=== PATIENT | female | born 1955 | race Caucasian/White ===

== ENCOUNTER 2017-03-01 17:21 | Emergency (ER) | payer BC ==
[2017-03-01] MEDS ORDERED: NS 0.9% 1000 ML* 1,000 ML IV ONE (19:30)
[2017-03-01] MEDS ORDERED: Morphine INJ* 4 MG/ML 1 ML SYRINGE IV ONE ×2 (19:30→22:29)
[2017-03-01] MEDS ORDERED: Ondansetron INJ* 2 MG/ML VIAL IV ONE (19:30)
--- NOTE | 2017-03-01 20:27 | RAD ---
HISTORY: Chest pain COMPARISONS: None VIEWS: 2: Frontal dual-energy and lateral views of the chest. FINDINGS: CARDIOMEDIASTINAL SILHOUETTE: The cardiomediastinal silhouette is normal. BLANCA: The blanca are normal. PLEURA: The costophrenic angles are sharp. No pleural abnormalities are noted. LUNG PARENCHYMA: The lungs are clear. ABDOMEN: The upper abdomen is clear. There is no subphrenic gas. BONES AND SOFT TISSUES: No bone or soft tissue abnormalities are noted. OTHER: None. IMPRESSION: NO ACTIVE CARDIOPULMONARY DISEASE.
[2017-03-01 20:47] LABS: Hematocrit 43 % (35-47); Hemoglobin 14.7 g/dl (12.0-16.0); Mean Corpuscular HGB Conc 34 g/dl (31-36); Mean Corpuscular Hemoglobin 31 pg (27-31); Mean Corpuscular Volume 90 fL (80-97); Mean Platelet Volume 9 um3 (7.4-10.4); Red Blood Count 4.77 10^6/ul (4.0-5.4); Red Cell Distribution Width 13 % (10.5-15); White Blood Count 7.2 10^3/ul (3.5-10.8)
[2017-03-01 21:05] LABS: Albumin 3.9 g/dL (3.2-5.2); BUN/Creatinine Ratio 17.8 (8-20); Calcium 9.4 mg/dL (8.6-10.3); EGFR African American 181.6 (>60); EGFR Non-African American 141.2 (>60); Globulin 3.6 g/dL (2-4); Potassium 3.7 mmol/L (3.5-5.0); Total Bilirubin 0.6 mg/dL (0.2-1.0); Total Protein 7.5 g/dL (6.4-8.9)
[2017-03-01 21:07] LABS: Troponin I 0.01 ng/mL (<0.04)
[2017-03-01] MEDS ORDERED: Iodixanol* (CONTRAST) 320 MG/ML 100 ML SDV IV ONE (21:25)
--- NOTE | 2017-03-01 21:59 | RAD ---
CLINICAL HISTORY: The upper left abdominal pain COMPARISON: None TECHNIQUE: Multiple contiguous axial CT scans were obtained of the abdomen and pelvis after the administration of intravenous contrast. Coronal and sagittal multiplanar reformations are submitted for review. Oral contrast was not administered. Delayed images were obtained through the abdomen and pelvis. FINDINGS: LUNG BASES: The lung bases are clear. LIVER: The liver is diffusely low in attenuation compared to the spleen. There are no focal hepatic parenchymal masses. The liver is enlarged measuring 22 cm in long axis. BILE DUCTS: There is no intrahepatic or extrahepatic biliary dilatation. GALLBLADDER: The gallbladder is normal, without pericholecystic inflammatory change. PANCREAS: The pancreas is normal, without mass or ductal dilatation. SPLEEN: Normal in size and appearance. UPPER GI TRACT: Evaluation of the gastrointestinal tract is limited by incomplete gastric distention. The upper GI tract is unremarkable. SMALL BOWEL AND MESENTERY: The small bowel is normal in contour, course, and caliber. There is no obstruction or dilatation. COLON: The colon is normal in contour, course, caliber. There is no pericolonic inflammatory change. There is a tubular, vermiform, hollow viscus that is blind ending, and originates from the cecum, consistent with a normal appendix. There is no periappendiceal inflammatory change. This is best seen on axial images 60 through 67. ADRENALS: Normal bilaterally. KIDNEYS: There is an 8.2 cm simple cyst of the left kidney. There is no appreciable hydronephrosis or nephrolithiasis BLADDER: The bladder is smooth in contour. PELVIC ORGANS: The patient appears to be status post partial hysterectomy. AORTA: There is calcific atherosclerotic disease of the abdominal aorta and its branches, without aneurysmal dilatation IVC: Unremarkable LYMPH NODES: There is no lymphadenopathy by size criteria. ABDOMINAL WALL: There is no evidence for abdominal wall hernia. BONES AND SOFT TISSUES: There are mild diffuse degenerative changes. OTHER: None IMPRESSION: 1. HEPATOMEGALY WITH FATTY INFILTRATION OF THE LIVER. 2. ATHEROSCLEROSIS. 3. NO ACUTE CT PATHOLOGY OF THE VISUALIZED ABDOMEN OR PELVIS
[2017-03-01] MEDS ORDERED: Morphine INJ* 4 MG/ML 1 ML SYRINGE ONE (22:16)
[2017-03-01 22:45] LABS: Urine Bacteria Absent (Absent); Urine Bilirubin Negative (Negative); Urine Glucose 3+(>=500 mg/dL) (Negative); Urine Nitrite Negative (Negative)
[2017-03-02 00:48] VITALS: BP 119/54
--- NOTE | 2017-03-02 01:48 | ED ---
Fernando Regalado Alok, scribed for Myles Rivera on 03/01/17 at 1934 . HPI Chest Pain - HPI Summary HPI Summary: 61 y/o female presents to the ED with pain under her left breast since leaving work today. 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 Pt states her pain is aggravated by movement and deep breaths. Pt tried drinking baking soda water in order to help alleviate pain with no effect. Pt also notes feeling "sluggish" for the past two days. Pt denies cough, fever, abd pain, nausea, dizziness, or SOB. Pt notes a rash on her abdomen due to allergies but states it is the same as baseline. PSHx includes removal of an ovarian cyst where a stress test was done several years ago. PMHx includes DM. Pt is allergic to Latex and Zinc. - History of Current Complaint Chief Complaint: EDChestWallPain Time Seen by Provider: 03/01/17 19:16 Hx Obtained From: Patient Onset/Duration: Started Hours Ago Timing: Constant Initial Severity: Moderate Current Severity: Moderate Pain Intensity: 8 Pain Scale Used: 0-10 Numeric Chest Pain Location: Left Anterior Chest Pain Radiates: No Aggravating Factor(s): Movement, Deep Breaths Alleviating Factor(s): Nothing Associated Signs and Symptoms: Positive: Chest Pain. Negative: Dizziness, Shortness of Breath, Fever, Nausea, Cough, Abdominal Pain - Allergy/Home Medications Allergies/Adverse Reactions: Allergies Allergy/AdvReac Type Severity Reaction Status Date / Time Latex Allergy Severe RASH, Verified 06/10/15 11:19 ITCHING Zinc Allergy Severe SKIN Verified 06/10/15 11:19 REACTION PMH/Surg Hx/FS Hx/Imm Hx Endocrine/Hematology History: Reports: Hx Diabetes Cardiovascular History: Reports: Hx Hypertension - Surgical History Surgery Procedure, Year, and Place: OVARIAN CYST REMOVAL, HYSTERECTOMY - Immunization History Date of Tetanus Vaccine: unknown Date of Influenza Vaccine: 2014 Infectious Disease History: No Infectious Disease History: Denies: Traveled Outside the [place] in Last 30 Days - Family History Known Family History: Negative: Cardiac Disease, Hypertension, Diabetes - Social History Occupation: Employed Full-time Alcohol Use: Occasionally Substance Use Type: Reports: None Smoking Status (MU): Never Smoked Tobacco Review of Systems Negative: Fever Positive: Chest Pain Negative: Shortness Of Breath, Cough Negative: Abdominal Pain, Nausea Positive: Rash - Same as baseline Neurological: Other - Negative: Dizziness All Other Systems Reviewed And Are Negative: Yes Physical Exam Triage Information Reviewed: Yes Vital Signs On Initial Exam: Initial Vitals Temp Pulse Resp BP Pulse Ox 98.8 F 116 19 222/116 98 03/01/17 17:33 03/01/17 17:33 03/01/17 17:33 03/01/17 17:33 03/01/17 17:33 Vital Signs Reviewed: Yes Appearance: Positive: Well-Appearing, No Pain Distress Skin: Positive: Warm, Skin Color Reflects Adequate Perfusion, Dry Head/Face: Positive: Normal Head/Face Inspection Eyes: Positive: EOMI, JULIANO ENT: Positive: Normal ENT inspection Neck: Positive: Supple, Nontender Respiratory/Lung Sounds: Positive: Clear to Auscultation, Breath Sounds Present Cardiovascular: Positive: RRR, Pulses are Symmetrical in both Upper and Lower Extremities, Other - Left sided chest pain Abdomen Description: Positive: Soft, Other: - Left upper quadrant tenderness/ Bowel Sounds: Positive: Present Musculoskeletal: Positive: Other - Left-sided chest pain and left upper quadrant tenderness Neurological: Positive: Normal, Sensory/Motor Intact, Alert, Oriented to Person Place, Time - Ender Coma Scale Coma Scale Total: 15 Diagnostics - Vital Signs Vital Signs Temp Pulse Resp BP Pulse Ox 03/01/17 18:29 97.8 F 104 20 184/91 97 03/01/17 17:33 98.8 F 116 19 222/116 98 - Laboratory Result Diagrams: 03/01/17 20:10 03/01/17 20:10 Lab Statement: Any lab studies that have been ordered have been reviewed, and results considered in the medical decision making process. - Radiology CXR Xray Interpretation: Positive (See Comments) - IMPRESSION: NO ACTIVE CARDIOPULMONARY DISEASE. Radiology Interpretation Completed By: Radiologist - CT Abd/Pel CT CT Interpretation: Positive (See Comments) - IMPRESSION: 1. HEPATOMEGALY WITH FATTY INFILTRATION OF THE LIVER. 2. ATHEROSCLEROSIS. 3. NO ACUTE CT PATHOLOGY OF THE VISUALIZED ABDOMEN OR PELVIS CT Interpretation Completed By: Radiologist - EKG 1822 Cardiac Rate: Tachycardia - 105 bpm EKG Rhythm: Sinus Tachycardia EKG Interpretation: No acute changes. Chest Pain Course/Dx - Course Course Of Treatment: Pt arrived to ED with left-sided CP. Labs, CT, and XRAY done showed NO ACUTE CT PATHOLOGY OF THE VISUALIZED ABDOMEN OR PELVIS and NO ACUTE CARDIAC DISEASE OF THE CHEST. Unlikely acute coronary syndrum. Will discharge pt with perscription for Motrin and Flexril and recommendation to FU with PCP in 3 days. - Diagnoses Provider Diagnoses: Musculoskeletal chest pain Discharge - Discharge Plan Condition: Stable Disposition: HOME Prescriptions: Cyclobenzaprine TAB* [Flexeril 10 MG TAB*] 10 mg PO TID PRN #15 tab PRN Reason: Pain Ibuprofen TAB* [Motrin TAB* 600 MG] 600 mg PO Q8H PRN #21 tab PRN Reason: Pain Patient Education Materials: Chest Pain (ED) Referrals: No Primary Care Phys,NOPCP [Primary Care Provider] - [facility] [place] [facility] [Outside] Additional Instructions: Please follow up with your primary care provider in the next 3 days. The documentation as recorded by the Fernando mcclain Alok accurately reflects the service I personally performed and the decisions made by Miguel ordaz Emmanuel.
== END 2017-03-02 00:35 | disposition home or self-care (01) ==
LOC: ED 17:21
DX: R07.9 Chest pain, unspecified (principal); R21 Rash and other nonspecific skin eruption
CPT/HCPCS: 36415; 71020; 74177; 80053; 81003; 81015; 83690; 83880; 84484; 85025; 85379; 85610; 85730; 93005; 96374; 96375; 99283; J2270; J2405; Q9967

== ENCOUNTER 2017-09-30 10:59 | Emergency (ER) | payer BC, OTHER ==
[2017-09-30] MEDS ORDERED: Ibuprofen TAB* 600 MG PO ONE (13:08)
[2017-09-30 13:10] VITALS: BP 155/88
--- NOTE | 2017-09-30 13:13 | UC ---
Lower Extremity/Ankle HPI - HPI Summary HPI Summary: fell left knee 04/16 few days ago after traveling developed left calf pain and lower leg swelling - History of Current Complaint Chief Complaint: UCLowerExtremity Stated Complaint: LEG PAIN Time Seen by Provider: 09/30/17 12:44 Hx Obtained From: Patient ?: No Onset/Duration: Gradual Onset, Lasting Days, Still Present Severity Initially: Moderate Severity Currently: Moderate Aggravating Factor(s): Standing, Ambulation Alleviating Factor(s): Rest, Elevation Able to Bear Weight: Yes - Allergies/Home Medications Allergies/Adverse Reactions: Allergies Allergy/AdvReac Type Severity Reaction Status Date / Time Latex Allergy Severe RASH, Verified 09/30/17 11:30 ITCHING Zinc Allergy Severe SKIN Verified 09/30/17 11:30 REACTION Home Medications: Home Medications NK [No Home Medications Reported] 09/30/17 [History Confirmed 09/30/17] PMH/Surg Hx/FS Hx/Imm Hx Previously Healthy: Yes - Surgical History Surgical History: Yes Surgery Procedure, Year, and Place: OVARIAN CYST REMOVAL, HYSTERECTOMY - Family History Known Family History: Negative: Cardiac Disease, Hypertension, Diabetes - Social History Occupation: Employed Full-time Lives: Alone Alcohol Use: Rare Substance Use Type: None Smoking Status (MU): Never Smoked Tobacco - Immunization History Most Recent Influenza Vaccination: 07/2017 Review of Systems Constitutional: Negative Skin: Negative Eyes: Negative ENT: Negative Respiratory: Negative Cardiovascular: Negative Gastrointestinal: Negative Genitourinary: Negative Motor: Negative Neurovascular: Negative Musculoskeletal: Arthralgia - left knee, Myalgia - left calf Neurological: Negative Psychological: Negative Is Patient Immunocompromised?: No All Other Systems Reviewed And Are Negative: Yes Physical Exam Triage Information Reviewed: Yes Appearance: Well-Appearing, No Pain Distress, Obese Vital Signs: Initial Vital Signs Temp 97.7 F 09/30/17 11:24 Pulse 109 09/30/17 11:24 Resp 18 09/30/17 11:24 BP 209/103 09/30/17 11:24 Pulse Ox 99 09/30/17 11:24 Vital Signs Reviewed: Yes Eye Exam: Normal Eyes: Positive: Conjunctiva Clear ENT Exam: Normal ENT: Positive: Normal ENT inspection, Hearing grossly normal. Negative: Trismus , Muffled voice, Hoarse voice Dental Exam: Normal Neck exam: Normal Neck: Positive: Supple, Nontender Respiratory Exam: Normal Respiratory: Positive: Chest non-tender, Lungs clear, Normal breath sounds, No respiratory distress, No accessory muscle use Cardiovascular Exam: Normal Cardiovascular: Positive: RRR, No Murmur, Pulses Normal, Brisk Capillary Refill Musculoskeletal Exam: Normal Musculoskeletal: Positive: Strength Intact, ROM Intact, Edema @ - left lower leg Neurological Exam: Normal Neurological: Positive: Alert, Muscle Tone Normal Psychological Exam: Normal Skin Exam: Normal Diagnostics - Radiology No standard instances Xray Interpretation: No Acute Changes Radiology Interpretation Completed By: Radiologist Lower Extremity Course/Dx - Course Course Of Treatment: elevate legs, dash diet follow with pcp for blood pressure management - Differential Dx/Diagnosis Provider Diagnoses: left leg edema, Elevated blood pressure without dx of hypertension Discharge - Discharge Plan Condition: Stable Disposition: HOME Patient Education Materials: Leg Edema (ED), DASH Eating Plan (ED), Hypertension (ED) Referrals: [facility] [place] [facility] [Outside] - As Soon As Possible No Primary Care Phys,NOPCP [Primary Care Provider] -
--- NOTE | 2017-09-30 15:23 | RAD ---
Indication: Left leg edema.. Duplex Doppler sonography of the deep venous system of the left lower extremity deep venous system was performed. Bilaterally the common femoral veins appear patent and compressible. Left proximal greater saphenous vein, proximal deep femoral vein, femoral vein, popliteal vein, posterior tibial veins and peroneal veins appear patent and compressible. Popliteal fossa cyst measuring up to 6.3 cm. IMPRESSION: NO EVIDENCE OF DEEP VENOUS THROMBOSIS IS IDENTIFIED.
--- NOTE | 2017-09-30 15:31 | RAD ---
Indication: Left knee injury and swelling. 4 views of left knee demonstrate some minimal joint space narrowing in the medial compartment. There may be a small joint effusion noted. No fracture is identified. IMPRESSION: Small joint effusion without evidence of fracture.
== END 2017-09-30 16:00 | disposition home or self-care (01) ==
LOC: UCEAST 10:59
DX: R60.0 Localized edema (principal); M79.662 Pain in left lower leg; R03.0 Elevated blood-pressure reading, without diagnosis of hypertension; Z88.8 Allergy status to other drugs, medicaments and biological substances; Z91.040 Latex allergy status
CPT/HCPCS: 99212; A9270-GY; G0463

== ENCOUNTER 2018-07-27 10:29 | Emergency (ER) | payer BC ==
[2018-07-27 10:54] VITALS: BP 161/96
[2018-07-27] MEDS ORDERED: Albuterol/Ipratropium NEB.SOL* Albuterol 2.5 MG/Ipratropium 0.5 MG 3 ML INH ONE (11:21)
--- NOTE | 2018-07-27 11:24 | UC ---
Respiratory Complaint HPI - HPI Summary HPI Summary: Pt is a 63 y/o female who presents to the c/o chest congestion. She states her symptoms began 2 days ago, and started with her left ear itching. She then began to have nasal drainage and a sore throat, which then moved to her chest. Patient now c/o chest congestion, and a cough with dark sputum. Pt with some intermittent wheeze. + fatigue - no fever, chills, rash. She has had a decreased appetite, but has been drinking fluids. She has a hx of bronchitis due to a latex allergy and used to use an inhaler. Patients medications reviewed this visit. - History of Current Complaint Chief Complaint: UCGeneralIllness Stated Complaint: SINUS PAIN, RESPIRATORY Time Seen by Provider: 07/27/18 11:09 Hx Obtained From: Patient Onset/Duration: Gradual Onset, Lasting Days - 2, Worse Since Timing: Constant Severity Currently: Moderate Pain Intensity: 3 Pain Scale Used: 0-10 Numeric Character: Cough: Productive, Sputum Description: - Dark Aggravating Factors: Nothing Alleviating Factors: Nothing Associated Signs And Symptoms: Positive: Dyspnea, Nasal Congestion Related History: Similar Episode/Dx as: - Bronchitis - Allergies/Home Medications Allergies/Adverse Reactions: Allergies Allergy/AdvReac Type Severity Reaction Status Date / Time latex Allergy Rash And Verified 07/27/18 10:59 Itching zinc Allergy See Comment Verified 07/27/18 10:59 PMH/Surg Hx/FS Hx/Imm Hx Previously Healthy: Yes Endocrine History: Diabetes Respiratory History: Bronchitis - Surgical History Surgical History: Yes Surgery Procedure, Year, and Place: OVARIAN CYST REMOVAL, HYSTERECTOMY - Family History Known Family History: Negative: Cardiac Disease, Hypertension, Diabetes - Social History Lives: With Family Alcohol Use: Rare Substance Use Type: None Smoking Status (MU): Never Smoked Tobacco - Immunization History Most Recent Influenza Vaccination: 07/2017 Review of Systems ENT: Sore Throat - Post-nasal drip, Ear Ache - Left ear internal pruritus, Nasal Discharge, Sinus Congestion Respiratory: Shortness Of Breath, Cough, Other - Chest congestion All Other Systems Reviewed And Are Negative: Yes Physical Exam - Summary Physical Exam Summary: Vital Signs Reviewed: Yes A+Ox3, no distress Eyes: Conjunctiva Clear, JULIANO. EOM intact and full ENT: Hearing grossly normal TM x 2 clear, turbinates inflammed and boggy, + PND , mmoist, uvula midline, no exudate, no erythema Neck: Positive: Supple. left lateral submandibular area - pt with fluctuant, soft cyst - pt states has had for several years - no change Respiratory: Positive: scattered wheeze, no rhonci, coarse cough, + BS throughout Cardiovascular: RRR nl s1, s2 no m/r CBT <2 sec abd soft + BS nt/nd no guarding, no distension Musculoskeletal Exam: LORENZO x 4 without difficulty Strength Intact, ROM Intact Neurological: Positive: Alert, + sensation throughout Psychological: Positive: Normal Response To Family Skin: Positive: no rash, no ecchymosis Triage Information Reviewed: Yes Vital Signs: Initial Vital Signs Temp 97.8 F 07/27/18 10:47 Pulse 89 07/27/18 10:47 Resp 20 07/27/18 10:47 BP 161/96 07/27/18 10:47 Pulse Ox 98 07/27/18 10:47 Diagnostic Evaluation - Laboratory O2 Sat by Pulse Oximetry: 98 Re-Evaluation - Re-Evaluation First Eval Re-Evaluation Time: 12:15 Change: Improved Comment: Wheezing nearly-resolved after breathing treatment. Pt states feel better. Will Rx mdi, abx, prednisone. secretion precaution. humidify air. return precaution Respiratory Course/Dx - Course Course Of Treatment: Pt with cough and wheeze progressive from URI. will give duoneb. recheck - if persists will check cxr. pred. abx. return precautions - Differential Dx/Diagnosis Provider Diagnoses: Acute bronchitis Discharge - Sign-Out/Discharge Documenting (check all that apply): Patient Departure - Discharge All imaging exams completed and their final reports reviewed: No Studies - Discharge Plan Condition: Stable Disposition: HOME Prescriptions: Albuterol HFA INHALER* [Ventolin HFA Inhaler*] 2 puff INH Q4H PRN #1 mdi PRN Reason: wheeze Amoxicillin PO (*) [Amoxicillin 500 MG CAP*] 500 mg PO Q12H #20 cap Fluticasone NASAL SPRAY 50MCG* [Flonase NASAL SPRAY 50MCG*] 2 spray BOTH NARES DAILY #1 btl Inhaler, Assist Devices [Aerochamber Mv] 1 each MC Q4HR #1 spacer predniSONE [Prednisone 20 MG TAB] 40 mg PO DAILY #10 tablet Patient Education Materials: Acute Bronchitis (ED) Forms: *Gen. Provider Communication, *Work Release Referrals: [facility] [place] [facility] [place] [facility] [place]Outside] Additional Instructions: - Stay well hydrated. Drink plenty of non-alcoholic, non-caffinated beverages. - Alternate ibuprofen (Advil, Motrin) 600mg and Tylenol every 3 hours for pain or fever. Take with food. Do NOT take for more than 4-5 days. - These infections are spread by secretions - do NOT share eating or drinking utensils - clean items you share with other people such as cell phones, computer mouse, TV remote, computer tablets,etc. Once you have been antibiotics for 2 days, change your toothbrush and your pillowcase. - get plenty of restful sleep - Use your inhaler 2 puffs every 4hours as prescribed, then every 4 hours as needed - humidify the air in the room where you sleep - boil water, run a hot steam shower, vaporizer, cups of water by heat register - okay to take over the counter decongestant and cough medication (Meredith-D, Zyrtec-D, Sudafed, Claritin-D) - use nasal spray as prescribed - contact your doctor or return with questions or concerns - Billing Disposition and Condition Condition: STABLE Disposition: Home - Attestation Statements Document Initiated by Jesus: Yes Documenting Scribe: Asiya Reza Provider For Whom Jesus is Documenting (Include Credential): Silvina Doyle MD Scribe Attestation: Asiya Regalado, scribed for Silvina Doyle MD on 07/31/18 at 1608. Scribe Documentation Reviewed: Yes Provider Attestation: The documentation as recorded by the Asiya mcclain accurately reflects the service I personally performed and the decisions made by me, Silvina Doyle MD
== END 2018-07-27 12:33 | disposition home or self-care (01) ==
LOC: UCEAST 10:29
DX: J20.9 Acute bronchitis, unspecified (principal); Z91.040 Latex allergy status
CPT/HCPCS: 99212; A9270-GY; G0463

== ENCOUNTER 2019-04-18 09:08 | Emergency (ER) | payer BC ==
[2019-04-18 09:21] VITALS: BP 148/84
[2019-04-18] MEDS ORDERED: Albuterol/Ipratropium NEB.SOL* Albuterol 2.5 MG/Ipratropium 0.5 MG 3 ML INH ONE (10:08)
[2019-04-18] MEDS ORDERED: predniSONE TAB* 20 MG PO ONE (10:08)
--- NOTE | 2019-04-18 10:14 | UC ---
Respiratory Complaint HPI - HPI Summary HPI Summary: 63-year-old female comes in with a chief complaint of 5 days of upper respiratory tract infection symptoms. Minimal rhinorrhea. She's having chest congestion and wheezing. She's been using her albuterol inhaler at home that she has left over from prior illness and that helps briefly but then her symptoms come back. No fevers measured. She is chronic edema no complaint of calf pain. No history of congestive heart failure. She has been bringing up some light green sputum. - History of Current Complaint Chief Complaint: UCRespiratory Stated Complaint: SOB COUGH HEADACHE Time Seen by Provider: 04/18/19 10:00 Pain Intensity: 10 - Allergies/Home Medications Allergies/Adverse Reactions: Allergies Allergy/AdvReac Type Severity Reaction Status Date / Time latex Allergy Rash And Verified 04/18/19 09:21 Itching zinc Allergy See Comment Verified 04/18/19 09:21 PMH/Surg Hx/FS Hx/Imm Hx Previously Healthy: Yes Respiratory History: Asthma - Surgical History Surgical History: Yes Surgery Procedure, Year, and Place: OVARIAN CYST REMOVAL, HYSTERECTOMY - Family History Known Family History: Negative: Cardiac Disease, Hypertension, Diabetes - Social History Alcohol Use: Rare Substance Use Type: None Smoking Status (MU): Never Smoked Tobacco - Immunization History Most Recent Influenza Vaccination: 07/2017 Review of Systems All Other Systems Reviewed And Are Negative: Yes Constitutional: Positive: Negative Skin: Positive: Negative Eyes: Positive: Negative ENT: Positive: Nasal Discharge Respiratory: Positive: Cough, Other - SEE HPI Cardiovascular: Positive: Negative Gastrointestinal: Positive: Negative Motor: Positive: Negative Neurovascular: Positive: Negative Musculoskeletal: Positive: Negative, Edema. Negative: Calf Tenderness Neurological: Positive: Negative Psychological: Positive: Negative Is Patient Immunocompromised?: No Physical Exam Triage Information Reviewed: Yes Appearance: No Pain Distress, Well-Nourished, Ill-Appearing - MILD Vital Signs: Initial Vital Signs Temp 98.1 F 04/18/19 09:16 Pulse 103 04/18/19 09:16 Resp 18 04/18/19 09:16 BP 148/84 04/18/19 09:16 Pulse Ox 96 04/18/19 09:16 Vital Signs Reviewed: Yes Eye Exam: Normal Eyes: Positive: Conjunctiva Clear ENT: Positive: Pharyngeal erythema, TMs normal Neck: Positive: Supple Respiratory: Positive: No respiratory distress, Wheezing Cardiovascular: Positive: RRR Musculoskeletal: Positive: Strength Intact, ROM Intact, Edema @ - TRACE B/L. NO CALF TENDERNESS. Neurological: Positive: Alert, Muscle Tone Normal Psychological Exam: Normal Psychological: Positive: Age Appropriate Behavior Skin Exam: Normal Respiratory Course/Dx - Course Course Of Treatment: DISCUSSED VIRAL VERSES BACTERIAL INFECTION AND THE ROLE OF ANTIBIOTICS. THE PATIENT PREFERS TO BE ON ANTIBIOTICS AT THIS TIME. - Differential Dx/Diagnosis Provider Diagnosis: Bronchitis with bronchospasm Discharge - Sign-Out/Discharge Documenting (check all that apply): Patient Departure All imaging exams completed and their final reports reviewed: No Studies - Discharge Plan Condition: Stable Disposition: HOME Prescriptions: Azithromyxin MARYLIN (NF) [Z-Marylin (Zithromax) 250 mg tabs #6] 2 tab PO .TODAY, THEN 1 DAILY #6 tab predniSONE TAB* [Deltasone 20 MG TAB*] 40 mg PO DAILY #8 tab Patient Education Materials: Acute Bronchitis (ED), Bronchospasm (ED) Referrals: [facility] [place] [facility] [Outside] Additional Instructions: FOLLOW UP WITH YOUR DOCTOR IF NOT COMPLETELY IMPROVED. GET RECHECKED SOONER IF YOUR CONDITION WORSENS; CHEST PAIN, SHORTNESS OF BREATH , YOU FEEL ILL OR ANY QUESTIONS OR CONCERNS. - Billing Disposition and Condition Condition: STABLE Disposition: Home
== END 2019-04-18 10:40 | disposition home or self-care (01) ==
LOC: UCEAST 09:08
DX: J20.9 Acute bronchitis, unspecified (principal); Z91.040 Latex allergy status
CPT/HCPCS: 99212; A9270-GY; G0463; J7512

== ENCOUNTER 2019-12-12 17:23 | Emergency (ER) | payer BC, MEDICARE ==
--- NOTE | 2019-12-12 20:29 | UC ---
Ear Complaint HPI - HPI Summary HPI Summary: 64-year-old female who has had cold symptoms which have resolved however she developed a sore inside her right ear canal which she has continually picked at and it is now swollen and increasingly tender. She denies any fever or chills. - History of Current Complaint Chief Complaint: UCEar Stated Complaint: EAR PAIN Time Seen by Provider: 12/12/19 20:10 Hx Obtained From: Patient ?: No Onset/Duration: Gradual Onset Severity Initially: Mild Severity Currently: Moderate Pain Intensity: 10 Aggravating Factors: Nothing Alleviating Factors: Nothing Associated Signs/Symptoms: Positive: Swelling @ - Mild swelling of the right tragus. - Allergies/Home Medications Allergies/Adverse Reactions: Allergies Allergy/AdvReac Type Severity Reaction Status Date / Time latex Allergy Rash And Verified 12/12/19 20:04 Itching zinc Allergy See Comment Verified 12/12/19 20:04 PMH/Surg Hx/FS Hx/Imm Hx Previously Healthy: Yes Cardiovascular History: Hypertension - Surgical History Surgical History: Yes Surgery Procedure, Year, and Place: OVARIAN CYST REMOVAL, HYSTERECTOMY - Family History Known Family History: Negative: Cardiac Disease, Hypertension, Diabetes - Social History Alcohol Use: Rare Substance Use Type: None Smoking Status (MU): Never Smoked Tobacco - Immunization History Most Recent Influenza Vaccination: 07/2017 Review of Systems All Other Systems Reviewed And Are Negative: Yes ENT: Positive: Ear Ache - Patient has some swelling and pain to the right tragus with a sore inside her ear canal. Is Patient Immunocompromised?: No Physical Exam Triage Information Reviewed: Yes Appearance: Well-Appearing, No Pain Distress, Well-Nourished Vital Signs: Initial Vital Signs Temp 96.8 F 12/12/19 19:57 Pulse 91 12/12/19 19:57 Resp 16 12/12/19 19:57 Pulse Ox 99 12/12/19 19:57 Vital Signs Reviewed: Yes Eyes: Positive: Conjunctiva Clear ENT: Positive: Pharynx normal, TMs normal, Uvula midline Skin: Positive: Other - The right tragus is mildly swollen and mildly erythematous with tenderness on palpation. Just inside her ear canal she has a small amount of erythema with some drainage from a sore that is present. The sore areas itself is minimally raised with some exudate present and tenderness on palpation. The rest of the ear canal is not swollen. Ear Complaint Course/Dx - Course Course Of Treatment: Patient is comfortable here. She is going to fill the prescription tomorrow and follow-up with the ear nose and throat physician if no improvement by Tuesday. Advised her to not stick anymore Q-tips or anything else in her ear. - Differential Dx/Diagnosis Provider Diagnosis: Cellulitis Discharge ED - Sign-Out/Discharge Documenting (check all that apply): Patient Departure All imaging exams completed and their final reports reviewed: No Studies - Discharge Plan Condition: Good Disposition: HOME Prescriptions: Amoxicillin/Clavulanate TAB* [Augmentin TAB 875*] 875 mg PO BID 10 Days #20 tab Patient Education Materials: Cellulitis (DC) Referrals: No Primary Care Phys,NOPCP [Primary Care Provider] - Dony Tapia MD [Medical Doctor] - Additional Instructions: Take the Augmentin with food, apply warm moist compresses to the sore area, do not put anything in your ear. Follow-up with the ear nose and throat physician if no improvement in 4 or 5 days. - Billing Disposition and Condition Condition: GOOD Disposition: Home
[2019-12-12] MEDS ORDERED: Amoxicillin/Clavulanate TAB* 875 MG PO ONE (21:01)
== END 2019-12-12 21:10 | disposition home or self-care (01) ==
LOC: UCEAST 17:23
DX: H60.11 Cellulitis of right external ear (principal); I10 Essential (primary) hypertension; Z91.09 Other allergy status, other than to drugs and biological substances; Z91.040 Latex allergy status
CPT/HCPCS: 99212; A9270-GY; G0463